=== PATIENT | female | born 1990 | race Caucasian/White ===

== ENCOUNTER → 2016-11-10 | Outpatient (CLI) | payer BC ==
[~2016-11-10] MED LIST: ESCI10TA17 PO; FLUO20CA34 PO; HYDR25CA PO; LORA-741 PO; MELATAB2 PO; OSEL75CA12 PO
[2016-11-14 12:35] LABS: CHLAMYDIA TRACH RNA*** NOT DETECTED (NOT DETECTED); GC (NEIS GONORRHOEAE)RNA** NOT DETECTED (NOT DETECTED)
== END | disposition home or self-care (01) ==
LOC: C.LABSPEC 16:04
PROVIDERS: ATTEND Obstetrics & Gynecology
DX: Z11.3 Encounter for screening for infections with a predominantly sexual mode of transmission (principal)

== ENCOUNTER → 2016-11-10 | Outpatient (CLI) | payer BC ==
[~2016-11-10] MED LIST changes: -FLUO20CA34 PO; -LORA-741 PO; -MELATAB2 PO; -OSEL75CA12 PO
== END | disposition home or self-care (01) ==
LOC: C.PAPS 09:19
PROVIDERS: ATTEND Obstetrics & Gynecology
DX: Z01.419 Encounter for gynecological examination (general) (routine) without abnormal findings (principal)

== ENCOUNTER 2017-11-07 06:17 | Emergency (ER) | payer BC, OTHER ==
[~2017-11-07] VITALS: Ht 162.6 cm; Wt 55.3 kg
[2017-11-07 06:22] VITALS: TEMP 37; Ht 162.6 cm; Wt 55.3 kg
[2017-11-07] MEDS ORDERED: FLUO20CA34 PO (06:42)
[2017-11-07] MEDS ORDERED: LORA-741 PO (06:42)
[2017-11-07] MEDS ORDERED: MELATAB2 PO (06:42)
[2017-11-07] MEDS ORDERED: IBUPROFEN 600 MG TAB PO STA (07:12)
[2017-11-07 07:42] LABS: INFLUENZA B ANTIGEN Neg for Influ B (NEG)
[2017-11-07] MEDS ORDERED: OSEL75CA12 PO (07:54)
--- NOTE | 2017-11-07 07:55 | EMERGENCY ROOM VISIT NOTE ---
History First contact with patient: 06:44 Chief Complaint: FLU LIKE SX Stated Complaint: HEADACHE,THROAT,COUGH,EARS,NOSE,SHIVER/SWEAT History of Present Illness The patient is a 26 year old female who presents to the Emergency Room with complaints of starting with a headache and stuffy nose yesterday morning. The patient thought it was just a hangover from drinking the night before. The patient states as the day progressed she started feeling chilled, shaky, body aches and sweats. She did not take her temperature. The patient denies any cough. She does admit to slight sore throat and ear pressure. The patient denies any urinary symptoms of frequency, urgency, dysuria or hematuria. The patient did not have the influenza vaccine. Review of Systems 10 system review was performed and was negative unless stated otherwise history of present illness. Past Medical/Surgical History Medical Problems: (1) Anxiety (2) Depression Social History Smoking Status: Never Smoker Alcohol Use: occasionally Drug Use: none Marital Status: single Housing Status: lives alone Occupation Status: employed Current/Historical Medications Scheduled Fluoxetine Hcl (Prozac), 30 MG PO DAILY Scheduled PRN Hydroxyzine Pamoate (Vistaril), 1 CAP PO DIRECTED PRN for Sleep Lorazepam (Ativan), 0.5 MG PO Q6H PRN for Anxiety/Agitation Melatonin (Melatonin Maximum Strengt), 5 MG PO HS PRN for Sleep Physical Exam Vital Signs Date Time Temp Pulse Resp B/P (MAP) Pulse Ox O2 Delivery O2 Flow Rate FiO2 18 06:22 37.0 101 20 105/69 96 Room Air Physical Exam PHYSICAL EXAM: Vital Signs were reviewed: Temperature 37.0, blood pressure 105/ 69, pulse 101, respiratory rate 28, Reviewed Nurse's notes and agree. Oxygen saturation is 96% on room air which is normal . GENERAL: 46-year-old female appears in no acute distress. MENTAL STATUS: Alert, oriented, coherent. EARS: Canals clear. TMs good light reflex, no erythema or fluid level noted. NOSE: Nasal mucosa with moderate erythema engorgement. PHARYNX: Mild erythema, no edema noted. No exudate noted. Airway is adequate. NECK: Supple, non-tender. No lymphadenopathy noted. LUNGS: Clear to auscultation without wheezes rales or rhonchi. CARDIAC: Regular rate and rhythm without murmur. SKIN: No rashes noted. Medical Decision & Procedures Laboratory Results Test 11/07/17 07:09 Influenza Type A Antigen POS for Influ A (NEG) Influenza Type B Antigen Neg for Influ B (NEG) Medications Administered Medications (Trade) Dose Ordered Sig/Jasbir Route Start Time Stop Time Status Last Admin Dose Admin Ibuprofen (Motrin Tab) 600 mg NOW STAT PO 11/07/17 07:12 11/07/17 07:13 DC 11/07/17 07:18 600 MG ED Course The patient was evaluated. The patient was given Motrin 600 mg by mouth for fever. Rapid strep was negative, culture is pending. Rapid influenza was positive for influenza A and negative for influenza B. The patient was informed the findings. The patient was discharged home in stable condition. Medical Decision Differential diagnosis include viral URI, influenza, bronchitis, pneumonia [place] Drug Monitoring Program Search Results: patient reviewed within database Medication Reconcilliation Current Medication List: was personally reviewed by me Blood Pressure Screening Patient's blood pressure: Normal blood pressure Impression Primary Impression: Influenza A Departure Information Dispostion Home / Self-Care Condition GOOD Prescriptions Oseltamivir (Tamiflu) 75 Mg Cap 75 MG PO BID for 5 Days, #10 CAP Prov: Zonia Stearns, NIKKI 11/07/17 Referrals No Doctor, Assigned (PCP) Forms HOME CARE DOCUMENTATION FORM, IMPORTANT VISIT INFORMATION Patient Instructions My [facility] Additional Instructions Push fluids. Rest. Tylenol and/or ibuprofen every 6 hours as needed for fever. Take Tamiflu as prescribed. You are contagious until symptoms have resolved unless she wear a mask. If symptoms worsen, seek further medical attention.
[2017-11-07 08:01] VITALS: BP 104/65; PULSE 90; O2SAT 95
== END 2017-11-07 08:02 | disposition home or self-care (01) ==
LOC: C.EDB 06:18 → C.EDA 08:02
DX: J10.1 Influenza due to other identified influenza virus with other respiratory manifestations (principal); F41.9 Anxiety disorder, unspecified; F32.9 Major depressive disorder, single episode, unspecified; Z79.899 Other long term (current) drug therapy